=== PATIENT | female | born 1970 | race Caucasian/White ===

== ENCOUNTER 2022-01-02 14:24 | Emergency (ER) | payer MEDICARE, OTHER ==
[~2022-01-02] VITALS: Ht 160 cm; Wt 77.1 kg
[2022-01-02 17:15] LABS: HEMOGLOBIN 12.6 gm/dL (12.0-15.0); MCH 30.3 pg (26.0-34.0); MCV 89.1 fL (80.0-100.0); MPV 11.3 fl. (7.2-11.1); RBC 4.15 mil/uL (4.20-5.00); RDW-CV 12.2 % (10.5-14.5); WBC 4.4 thou/uL (4.0-11.0)
[2022-01-02 17:28] LABS: CALCIUM 8.5 mg/dL (8.5-10.1); CREATININE 0.9 mg/dL (0.6-1.3); POTASSIUM 3.6 mmol/L (3.5-5.1)
[2022-01-02] MEDS ORDERED: ONDANSETRON ODT4 MG PO (19:17)
[2022-01-02] MEDS ORDERED: CIPRO500 M1 PO (19:17)
[2022-01-02] MEDS ORDERED: METRONIDAZOLE500 M4 PO (19:17)
[2022-01-02] MEDS ORDERED: APAP W/CODEINE1 TA2 PO (19:17)
[2022-01-02 20:05] VITALS: BP 122/81
== END 2022-01-02 20:05 | disposition home or self-care (01) ==
LOC: M.ERS 14:24
PROVIDERS: Physician Assistant
DX: U07.1 COVID-19 (principal); R10.829 Rebound abdominal tenderness, unspecified site